=== PATIENT | female | born 1965 | race Caucasian/White ===

== ENCOUNTER → 2016-06-04 | Outpatient (CLI) | payer OTHER ==
--- NOTE | 2016-06-04 14:11 | MA ---
Screening Digital Mammogram With Tomosynthesis Clinical Indications: Routine screening. Mother with breast cancer at age 76. Technique: Standard digital cephalocaudal and tomosynthesis mediolateral oblique projections were ob tained. The digital images were processed by the [employer] computer aided detection system. Comparison: May 2015, March 2014, March 2013, October 2011, November 2010 and November 2007. Breast density: D; The breast tissue is extremely dense. This may lower the sensitivity of mammograph y. Findings: CAD was reviewed. There is a small cluster of microcalcifications in the central lower lef t breast. The remainder the left and right breast are stable.. Impression: Cluster of microcalcifications lower left breast. Recommendation: Magnification views to better evaluate the nature and number of the calcifications. Please fax an order for a left breast Diagnostic Mammogram to [phone]. [facility] will [facility] result letter to the patient. Negative mammography should not preclude additional workup of a clinically suspicious finding. The patient's information is entered into a reminder system with a target due date for her next mammo gram.
== END ==
LOC: FIMAGING 13:19
DX: Z12.31 Encounter for screening mammogram for malignant neoplasm of breast (principal); Z80.3 Family history of malignant neoplasm of breast
CPT/HCPCS: G0202

== ENCOUNTER → 2016-06-10 | Outpatient (CLI) | payer OTHER ==
--- NOTE | 2016-06-10 15:45 | MA ---
Diagnostic Digital Mammogram left Breast Clinical Indications: Indeterminate microcalcifications left breast. Technique: Magnification views were obtained of the left breast in CC and 90 degree lateral projectio ns as well as a full 90 degree lateral view. This examination is processed by the [facility] [place] computer-aid ed detection system. Comparison: June 04, 2016; June 02, 2015; and studies dating back to December 28, 2007 Breast density: D; The breasts are extremely dense, which lowers the sensitivity of mammography. Findings: CAD was reviewed. The microcalcifications within the 6 o'clock position left breast appear relatively stable allowing f or slight differences in technique. There are scattered additional microcalcifications within the den se breast parenchymal tissue elsewhere on the left. There is no associated mass appreciated. Impression: Benign findings. BI-RADS 2. These findings were communicated with the patient. Recommendation: Routine annual mammography is recommended in one year. Dense mammographic pattern limits the sensitivity of mammography in this patient. If there is a clini mia palpable abnormality, recommend additional imaging with ultrasound, if clinically indicated. [facility] will send a result letter to the patient. Negative mammography should not preclude additional workup of a clinically suspicious finding.
== END ==
LOC: FIMAGING 15:06
PROVIDERS: ATTEND Family Medicine
DX: Z12.39 Encounter for other screening for malignant neoplasm of breast (principal); R92.0 Mammographic microcalcification found on diagnostic imaging of breast
CPT/HCPCS: G0206

== ENCOUNTER → 2017-06-09 | Outpatient (CLI) | payer OTHER | LOC: FIMAGING 10:15 | PROVIDERS: ATTEND Family Medicine | DX: Z12.31 Encounter for screening mammogram for malignant neoplasm of breast (principal); Z80.3 Family history of malignant neoplasm of breast ==

== ENCOUNTER → 2018-06-20 | Outpatient (CLI) | payer BC | LOC: FIMAGING 13:16 | PROVIDERS: ATTEND Family Medicine | DX: Z12.31 Encounter for screening mammogram for malignant neoplasm of breast (principal) ==